=== PATIENT | female | born 1930 | race Caucasian/White ===

== ENCOUNTER → 2017-02-07 | Day surgery (SDC) | payer MEDICARE, OTHER ==
[~2017-02-07] MED LIST: CALCIUM 600 +1 EAC2 PO; CEROVITE SENIO1 EACH PO; CERTAVITE W/LUT1 TA1 PO; DEPAKOTE250 MG PO; EXELON1 PATCH .2 EXT; FERREX 150 PLU1 EACH PO; LACTULOSE10 GM/151; LEVAQUIN PO; MIRALAX119 GM PO; MULTI VITAMIN1 EACH PO; NAMENDA10 MG PO; NO MEDICATIONS; OXYCODONE-ACET1 EACH PO; POLYSACC IRON150 MG PO; PRINIVIL20 M1 PO; PROMOD946 ML; RISPERDAL0.25 MG PO; RISPERDAL0.5 M1 PO; RISPERIDONE0.5 MG; SENNA-LAX8.6 M1 PO; VITAMIN C500 MG PO; XANAX1 MG PO
--- NOTE | ~2017-02-07 | OR ---
Unit #: [id number] #: [id number] Patient: ARMOND MALAVE [id number] [address] [address] [id number] MR#: [id number] NAME: ARMOND MALAVE ROOM: Date of Procedure: 02/07/2017 Admission Date: 02/07/2017 Surgeon: Chi Rain M.D. : 1930 Attending Physician: Chi Rain M.D. Referring Physician: Chi Rain M.D. Primary Care Physician: Jennifer Monzon M.D. OPERATIVE REPORT PROCEDURE PERFORMED Esophagogastroduodenoscopy to descending duodenum. INDICATIONS FOR PROCEDURE An 86-year-old with dysphagia, anorexia, weight loss, undergoing evaluation with upper endoscopy. MEDICATIONS Monitored anesthesia. POSTOPERATIVE FINDINGS Normal exam. Normal esophagus, stomach, duodenum, and distal duodenum. PLAN Continue with current treatment. Consider Speech Therapy evaluation. DESCRIPTION OF PROCEDURE The patient was explained of the procedure, risks, and benefits along with the risks and benefits of anesthesia. She was brought to the endoscopy room. Propofol anesthesia was given. Bite block was placed. The scope was passed down the mouth into esophagus, stomach, duodenum, and distal duodenum. Findings as described. No biopsies were taken. Gently, I pulled the scope out of the patient's mouth. She tolerated it well. Dictated by... Delano PhelpsJ/prestonl TD: 02/07/2017 23:51 JOB #: [id number] Unit #: [id number] #: [id number] Patient: ARMOND MALAVE OPERATIVE REPORT Page 1 of 1 X Chi Rain MD PROCEDURE OPERATIVE NOTE
== END | disposition home or self-care (01) ==
LOC: COPS 01-24 15:00
PROVIDERS: Internal Medicine
PROC: 0DJ08ZZ Inspection of Upper Intestinal Tract, Via Natural or Artificial Opening Endoscopic (ICD-10-PCS; principal; 2017-02-07 15:00)
DX: R13.10 Dysphagia, unspecified (principal); R63.0 Anorexia; R63.4 Abnormal weight loss; J44.9 Chronic obstructive pulmonary disease, unspecified; K21.9 Gastro-esophageal reflux disease without esophagitis; I51.7 Cardiomegaly; G30.9 Alzheimer's disease, unspecified; F02.80 Dementia in other diseases classified elsewhere, unspecified severity, without behavioral disturbance, psychotic disturbance, mood disturbance, and anxiety; F41.9 Anxiety disorder, unspecified; Z79.899 Other long term (current) drug therapy; Z87.440 Personal history of urinary (tract) infections; Z86.73 Personal history of transient ischemic attack (TIA), and cerebral infarction without residual deficits